=== PATIENT | female | born 1990 | race Caucasian/White ===

== ENCOUNTER 2019-06-25 21:11 | Emergency (ER) | payer SELFPAY ==
[~2019-06-25] VITALS: Ht 165.1 cm; Wt 55.0 kg
[2019-06-25] MEDS ORDERED: SODIUM CHLORIDE 0.9% 1,000 ML IV ONE (22:17)
[2019-06-25] MEDS ORDERED: ONDANSETRON HCL 4MG/2ML INJ IV STA (22:17)
[2019-06-25] MEDS ORDERED: LORAZEPAM 2MG/ML CPJ IM ONE (22:30)
[2019-06-25] MEDS ORDERED: OLANZAPINE 10 MG/VIAL IM ONE (22:30)
[2019-06-25] MEDS ORDERED: LORAZEPAM 2MG/ML CPJ IV ONE (22:45)
[2019-06-25 23:07] LABS: BASOPHILS % 0.5 % (0.0-2.0); HEMATOCRIT. 33.9 % (36.0-48.0); HEMOGLOBIN. 11.3 g/dL (12.0-16.0); MEAN CORPUSCULAR HEMOGLOBIN 27.4 pg (28.0-32.0); MEAN PLATELET VOLUME 10.6 fl (7.4-10.4); MONOCYTES % 6.2 % (2.0-8.0); NEUTROPHILS % 79.3 % (40.0-76.0); PLATELET 161 x1000/uL (130-400); RED BLOOD CELL COUNT 4.13 mill/uL (4.2-5.4); RED CELL DISTRIBUTION WIDTH 13.2 % (11.6-14.6)
[2019-06-25 23:14] LABS: CHLORIDE 108 mEq/L (98-107)
[2019-06-25 23:15] LABS: HCG SCREEN NEGATIVE
[2019-06-25 23:18] LABS: ETHANOL BLOOD < 10 mg/dL
[2019-06-25 23:22] LABS: CREATINE KINASE 67 IU/L (26-192)
[2019-06-25 23:25] LABS: CREATINE KINASE MB FRACTION < 1.0 ng/mL (0.5-3.6)
[2019-06-26 00:32] LABS: *AMPHETAMINES SCREEN URINE NEGATIVE (NEGATIVE); *BARBITURATES SCREEN URINE NEGATIVE (NEGATIVE); *BENZODIAZEPINES SCREEN URINE NEGATIVE (NEGATIVE); *COCAINE SCREEN URINE NEGATIVE (NEGATIVE); METHADONE URINE SCREEN NEGATIVE (NEGATIVE); OPIATES URINE SCREEN NEGATIVE (NEGATIVE)
[2019-06-26 00:33] LABS: PHENCYCLIDINE URINE SCREEN NEGATIVE (NEGATIVE)
[2019-06-26 00:49] LABS: CANNABINOID URINE SCREEN PRESUMTIVE POSITIVE (NEGATIVE)
[2019-06-26 04:21] VITALS: BP 102/60
== END 2019-06-26 05:22 | disposition home or self-care (01) ==
LOC: ER 21:11
DX: T40.7X1A Poisoning by cannabis (derivatives), accidental (unintentional), initial encounter (principal); F12.929 Cannabis use, unspecified with intoxication, unspecified; G92 Toxic encephalopathy; R45.1 Restlessness and agitation; F14.10 Cocaine abuse, uncomplicated; F15.10 Other stimulant abuse, uncomplicated; F11.10 Opioid abuse, uncomplicated; Z71.51 Drug abuse counseling and surveillance of drug abuser; Y92.89 Other specified places as the place of occurrence of the external cause; Z78.1 Physical restraint status
CPT/HCPCS: 36415; 80053; 80305; 80320; 81025; 82550; 82553; 84484; 84703; 85025; 93005; 96361; 96372; 96374; 99284; J2060; J2405; J3490; J7030; Z7610; G0480